=== PATIENT | female | born 1975 | race Caucasian/White ===

== ENCOUNTER 2021-12-22 11:25 | Emergency (ER) | payer OTHER ==
[2021-12-22 12:09] LABS: HCT 41.2 % (37.0-47.0); HGB 13.7 g/dl (12.5-16.0); LYMPHOCYTE 21.6 % (15-48); MCH 29.6 pg (25.0-31.0); MCHC 33.3 g/dL (32.0-36.0); MONOCYTE 5.9 % (0-12); MPV 10.5 fL (6.0-9.5); NRBC 0; PLT 301 K/uL (150-400); RBC 4.63 M/uL (4.20-5.40); RDW 12.4 % (11.5-14.0); WBC 10.4 K/uL (4.0-10.5)
[2021-12-22 12:29] LABS: ALBUMIN 3.8 g/dL (3.4-5.0); ALKALINE PHOSHATASE 50 U/L (46-116); ALT 23 U/L (14-59); AST 16 U/L (15-37); BILIRUBIN - TOTAL 0.4 mg/dL (0.2-1.0); BUN 15 mg/dL (7-18); CHLORIDE 103 mmol/L (98-107); CO2 (BICARBONATE) 26 mmol/L (21-32); CREATININE 0.79 mg/dL (0.51-0.95); GLOBULIN (CALCULATION) 3.3 g/dL; GLUCOSE 94 mg/dL (74-106); POTASSIUM 4.1 mmol/L (3.5-5.1); TOTAL PROTEIN 7.1 g/dL (6.4-8.2)
[2021-12-22 12:48] LABS: CORONAVIRUS 2019 SARS-COV-2 NEGATIVE (NEGATIVE); INFLUENZA A NAA NEGATIVE (NEGATIVE)
== END 2021-12-22 15:32 | disposition home or self-care (01) ==
LOC: FER 11:25
PROVIDERS: Internal Medicine
DX: R07.89 Other chest pain (principal); R00.2 Palpitations; F17.210 Nicotine dependence, cigarettes, uncomplicated; Z20.822 Contact with and (suspected) exposure to COVID-19
CPT/HCPCS: 36415; 71045; 80053; 83880; 84484; 85025; 85379; 93005; J1885; J3475; U0002